=== PATIENT | female | born 1935 | race Caucasian/White ===

== ENCOUNTER → 2017-01-01 | Outpatient (CLI) | payer MEDICARE, BC ==
--- NOTE | 2017-01-02 10:59 | MM ---
Reason for exam: screening (asymptomatic). Last mammogram was performed 3 years and 5 months ago. History: Patient is postmenopausal. Family history of breast cancer in cousin. Physical Findings: A clinical breast exam by your physician is recommended on an annual basis and results should be correlated with mammographic findings. MG 3D Screening Mammo W/Cad Bilateral CC and MLO view(s) were taken. Prior study comparison: August 07, 2013, left diagnostic mammogram w/CAD. February 05, 2013, UP DIGITAL LEFT BREAST MAMMOGRAM w/CAD. The breast tissue is heterogeneously dense. This may lower the sensitivity of mammography. There are calcifications within a mole left breast. There is chronic nodularity bilaterally. There is no dominant lesion. No significant changes when compared with prior studies. ASSESSMENT: Benign, BI-RAD 2 RECOMMENDATION: Routine screening mammogram of both breasts in 1 year.
== END | disposition home or self-care (01) ==
LOC: RADMAMWWP 10:55
PROVIDERS: ATTEND Internal Medicine
DX: Z12.31 Encounter for screening mammogram for malignant neoplasm of breast (principal)
CPT/HCPCS: 77063; G0202

== ENCOUNTER → 2017-10-11 | Outpatient (CLI) | payer MEDICARE, BC ==
--- NOTE | 2017-10-11 15:20 | XR ---
EXAM TYPE: LUMBAR SPINE X RAY SERIES COMPARISON: NONE HISTORY: Chronic lower back pain TECHNIQUE: 4 views are submitted. FINDINGS: Alignment is anatomic. The pedicles are intact. The transverse processes are intact. There is no s pondylolysis or spondylolisthesis. Hypertrophic and degenerative change of the spine. Severe multile gloria degenerative disc disease with multilevel facet arthropathy. Vascular calcifications noted IMPRESSION: 1. Severe multilevel degenerative disc disease and facet arthropathy.
== END | disposition home or self-care (01) ==
LOC: RADXRYALE 14:55
PROVIDERS: ATTEND Internal Medicine
DX: M51.36 Other intervertebral disc degeneration, lumbar region (principal); M46.96 Unspecified inflammatory spondylopathy, lumbar region
CPT/HCPCS: 72110

== ENCOUNTER → 2020-05-27 | Outpatient (CLI) | payer MEDICARE, BC ==
--- NOTE | 2020-05-27 14:46 | US ---
EXAMINATION TYPE: US kidneys/renal and bladder DATE OF EXAM: 05/27/2020 COMPARISON: NONE CLINICAL HISTORY: R31.0 HEMATURIA. Patient states dysuria EXAM MEASUREMENTS: Right Kidney: 10.6 x 4.7 x 4.2 cm Left Kidney: 10.3 x 5.1 x 4.9 cm Right Kidney: Decreased renal cortex. No hydronephrosis or masses seen Left Kidney: Decreased renal cortex. No hydronephrosis or masses seen. Upper pole cyst = 5.7 x 5.4 x 5.1 cm Bladder: Bilateral Jets seen: Yes There is no evidence for hydronephrosis at this point in time. No nephrolithiasis is seen. No solid masses are identified. The urinary bladder is anechoic. Bilateral ureteral jets are seen. Incidental finding of gallstones. IMPRESSION: 1. Renal parenchymal thinning. 2. Simple cyst upper pole left kidney.
== END | disposition home or self-care (01) ==
LOC: RADUSWWP 14:11
PROVIDERS: ATTEND Urology
DX: N28.1 Cyst of kidney, acquired (principal); N28.89 Other specified disorders of kidney and ureter; Z88.1 Allergy status to other antibiotic agents
CPT/HCPCS: 76770

== ENCOUNTER 2020-06-20 12:04 | Day surgery (SDC) | payer MEDICARE, BC ==
[2020-06-08 10:47] VITALS: BMI 29.7
--- NOTE | 2020-06-19 13:12 | P.GSHP ---
History of Present Illness H&P Date: 06/19/20 85 yo [place] who came to me with hematuria and recurrent uti. I did cystoscopy to assess the status of the bladder as there were no positive urine culture reports. The cysto showed chronic inflammation but the cytology was consistent with urothelial ca. I suspect she has cis of the bladder and she comes for bladder biopsies with retrograde pyeograms - Constitutional Constitutional: Denies chills, Denies fever - EENT Eyes: denies blurred vision, denies pain Ears, nose, mouth and throat: Denies headache, Denies sore throat - Cardiovascular Cardiovascular: Denies chest pain, Denies shortness of breath - Respiratory Respiratory: Denies cough, Denies 7 - Gastrointestinal Gastrointestinal: Denies abdominal pain, Denies diarrhea, Denies nausea, Denies vomiting - Genitourinary (Female) Genitourinary: Denies dysuria, Denies hematuria - Genitourinary (Male) Genitourinary: Denies dysuria, Denies hematuria - Musculoskeletal Musculoskeletal: Denies myalgias - Integumentary Integumentary: Denies pruritus, Denies rash - Neurological Neurological: Denies numbness, Denies weakness - Psychiatric Psychiatric: Denies anxiety, Denies depression - Endocrine Endocrine: Denies fatigue, Denies weight change Past Medical History Past Medical History: Atrial Fibrillation, Cancer, Diabetes Mellitus, Hypertension, Osteoarthritis (OA), Skin Disorder, Thyroid Disorder Additional Past Medical History / Comment(s): hx of blood in urine, hx of menierres, skin ca, hx of skin disorder, no current problems History of Any Multi-Drug Resistant Organisms: None Reported Past Surgical History: Heart Catheterization With Stent, Hysterectomy, Joint Replacement, Orthopedic Surgery Additional Past Surgical History / Comment(s): soledad knee replacement, soldead cataracts, soledad carpal tunnel Past Anesthesia/Blood Transfusion Reactions: Previous Problems w/ Anesthesia Additional Past Anesthesia/Blood Transfusion Reaction / Comment(s): longer time to wake up, hx of blood transfusion no reactions Date of Last Stent Placement:: 2011 Smoking Status: Former smoker Medications and Allergies Home Medications Medication Instructions Recorded Confirmed Type Atorvastatin [Lipitor] 10 mg PO MOWEFR 06/08/20 06/08/20 History Cranberry 1 tab PO DAILY 06/08/20 History Digoxin 250 mcg PO HS 06/08/20 06/08/20 History Furosemide [Lasix] 20 mg PO DAILY PRN 06/08/20 06/08/20 History Ginkgo Biloba 120 mg PO DAILY 06/08/20 History Levothyroxine Sodium 0.5 tab PO BROWN 06/08/20 06/08/20 History Levothyroxine Sodium [Synthroid] 112 mcg PO MOTUWETHFRSA 06/08/20 06/08/20 History Linagliptin [Tradjenta] 5 mg PO DAILY 06/08/20 06/08/20 History Lisinopril [Prinivil] 10 mg PO BID 06/08/20 06/08/20 History Magnesium 1 tab PO DAILY 06/08/20 History Metoprolol Tartrate 25 mg PO HS 06/08/20 06/08/20 History Metoprolol Tartrate 50 mg PO QAM 06/08/20 06/08/20 History Pioglitazone [Actos] 45 mg PO QAM 06/08/20 06/08/20 History Rivaroxaban [Xarelto] 10 mg PO DAILY 06/08/20 06/08/20 History traMADol HCL [Ultram] 50 mg PO Q6HR PRN 06/08/20 06/08/20 History Allergies Allergy/AdvReac Type Severity Reaction Status Date / Time tetracycline Allergy throat Verified 06/08/20 10:42 Swelling Surgical - Exam - General well developed, well nourished - Eyes PERRL - ENT no hearing loss - Neck trachea midline - Respiratory normal expansion, normal respiratory effort - Cardiovascular Rhythm: irregularly irregular - Abdomen Abdomen: soft, non tender - Genitourinary normal external genitalia, normal perineum - Integumentary no rash, no growths - Neurologic normal coordination, normal sensation - Musculoskeletal normal posture - Psychiatric oriented to time, oriented to person, oriented to place, speech is normal, memory intact Results - Imaging US - kidney/bladder: report reviewed, image reviewed Assessment and Plan Assessment: Impression: LUTS with hematuria , negative cultures and positive cytology for urothelial ca. Plan: cysto with bilateral retrograde pyelograms and bladder biopsies.
[~2020-06-20 12:04] MED LIST: HYDROmorphone 0.5 MG/0.5 ML SYRINGE IVP PRN; LACTATED RINGERS 1,000 ML IV SCH; LIDOCAINE 1% (10MG/ML) FOR IV START INTRADERMA PRN; ONDANSETRON 4 MG/2 ML VIAL IVP ONE
[2020-06-20 13:09] LABS: Glucose,Whole Blood 195 mg/dL (75-99)
[2020-06-20] MEDS ORDERED: ONDANSETRON 4 MG/2 ML VIAL ONE (13:13)
[2020-06-20] MEDS ORDERED: DEXAMETHASONE SOD PHOSPHATE 4 MG/ML 1 ML VIAL IVP ONE (13:19)
[2020-06-20 13:34] LABS: Basophils % (A) 0 %; Eosinophils # (A) 0.2 k/uL (0-0.7); Eosinophils % (A) 3 %; HGB 11.7 gm/dL (11.4-16.0); Lymphocytes # (A) 2.3 k/uL (1.0-4.8); Lymphocytes % (A) 27 %; MCH 28.2 pg (25.0-35.0); MCHC 33.6 g/dL (31.0-37.0); MCV 83.8 fL (80.0-100.0); Mean Platelet Volume 6.9; Monocytes # (A) 0.5 k/uL (0-1.0); Monocytes % (A) 6 %; Neutrophils # (A) 5.3 k/uL (1.3-7.7); Neutrophils % (A) 62 %; Platelet Count 278 k/uL (150-450); RBC 4.17 m/uL (3.80-5.40); RDW 13.3 % (11.5-15.5); WBC 8.6 k/uL (3.8-10.6)
[2020-06-20 13:43] LABS: Appearance,Urine Cloudy (Clear); Bacteria,Urine Occasional /hpf; Bilirubin,Urine Negative (Negative); Blood,Urine Negative (Negative); Color,Urine Light Yellow; Glucose,Urine (UA) Negative (Negative); Ketones,Urine Negative (Negative); Leukocyte Esterase,Urine Small (Negative); Mucus,Urine Rare /hpf; Nitrite,Urine Negative (Negative); PH, Urine 5.5 (5.0-8.0); Protein,Urine Negative (Negative); RBC,Urine 1 /hpf (0-5); Squamous Epithelial Cell,Urine 8 /hpf (0-4); Urobilinogen,Urine <2.0 mg/dL (<2.0); WBC,Urine 5 /hpf (0-5)
[2020-06-20 13:45] LABS: Albumin 4.1 g/dL (3.5-5.0); Calcium 10.8 mg/dL (8.4-10.2); Potassium 4.7 mmol/L (3.5-5.1); Total Bilirubin 0.6 mg/dL (0.2-1.3); Total Protein 7.1 g/dL (6.3-8.2)
[2020-06-20] MEDS ORDERED: LIDOCAINE 1% INJ 10MG/ML (20 ML MDV) ONE (14:27)
[2020-06-20] MEDS ORDERED: fentaNYL (PF) 50 MCG/ML 2 ML AMP ONE (14:27)
[2020-06-20] MEDS ORDERED: PROPOFOL 10 MG/ML 20 ML VIAL IV ONE (14:27)
[2020-06-20] MEDS ORDERED: IOPAMIDOL-370 50ML BTL MISCELLANE ONE (14:53)
[2020-06-20 15:14] VITALS: TEMP 97.6
[2020-06-20] MEDS ORDERED: HYDROmorphone 0.5 MG/0.5 ML SYRINGE IVP ONE (15:15)
--- NOTE | 2020-06-20 15:15 | P.OP ---
Date of Procedure: 06/20/20 Preoperative Diagnosis: Hematuria, bladder pain rule out carcinoma in situ of the bladder Postoperative Diagnosis: Same Procedure(s) Performed: Cystoscopy, bilateral retrograde pyelograms, bladder biopsies with fulguration Anesthesia: KASHMIR Surgeon: Niranjan Rudolph Estimated Blood Loss (ml): 25 Pathology: other (Bladder biopsies) Condition: stable Disposition: PACU Indications for Procedure: The patient is 85. She has hematuria, symptoms of recurring urinary infection, and erythematous bladder endoscopically and positive urine cytology for urothelial cancer. She comes for bladder biopsies and retrograde pyelogram Description of Procedure: The patient is brought to the operating suite. She's given general endotracheal anesthesia. She's placed lithotomy position with sterile prep and drape. She has a grade 3 rectocele and a grade 2 cystocele. Cystoscopy identifies a trabeculated bladder. There is patchy erythema. Both ureteral orifices are normal. Within a cone-tipped catheter bilateral retrograde pyelograms were performed. The ureters of normal course caliber without filling defect extrinsic compression or calyceal deformity. A cup biopsy forceps several biopsies of the bladder mucosa obtained. With the Bugbee electrode the areas were fulgurated. The bladder strain the patient's awake and returned recovery in good condition. Specimens are sent to pathology Impression positive urine cytology, hematuria and bladder erythema rule out carcinoma in situ the bladder Recommendations: The patient will be discharged home upon recovery and found the office next week.
--- NOTE | 2020-06-20 15:37 | FL ---
Fluoroscopy HISTORY: Gross hematuria 52 seconds fluoroscopy time supplied to the referring clinician. 5 intraoperative C-arm images docum ent the procedure. See dictated report from urology.
[2020-06-20 15:50] VITALS: RESP 18
[2020-06-20 16:02] VITALS: BP 124/60; PULSE 71
[2020-06-20 16:16] LABS: Glucose,Whole Blood 195 mg/dL (75-99)
== END 2020-06-20 16:46 | disposition home or self-care (01) ==
LOC: OR 12:04
PROVIDERS: ATTEND Urology
DX: D09.0 Carcinoma in situ of bladder (principal); I48.91 Unspecified atrial fibrillation; E11.9 Type 2 diabetes mellitus without complications; I25.10 Atherosclerotic heart disease of native coronary artery without angina pectoris; K21.9 Gastro-esophageal reflux disease without esophagitis; I10 Essential (primary) hypertension; E07.9 Disorder of thyroid, unspecified; M19.90 Unspecified osteoarthritis, unspecified site; Z85.828 Personal history of other malignant neoplasm of skin; Z95.5 Presence of coronary angioplasty implant and graft; Z90.710 Acquired absence of both cervix and uterus; Z96.653 Presence of artificial knee joint, bilateral; Z98.42 Cataract extraction status, left eye; Z98.41 Cataract extraction status, right eye; Z98.890 Other specified postprocedural states; Z87.891 Personal history of nicotine dependence; Z79.84 Long term (current) use of oral hypoglycemic drugs; Z79.890 Hormone replacement therapy; Z79.899 Other long term (current) drug therapy; Z79.01 Long term (current) use of anticoagulants; Z79.891 Long term (current) use of opiate analgesic; Z88.1 Allergy status to other antibiotic agents
CPT/HCPCS: 88305; 80053; 85025; 81001; 74420; 52204; C1758; J1100; J2405; J0690; J2001; J3010; J2704; J1170; Q9967

== ENCOUNTER → 2022-11-19 | Outpatient (CLI) | payer MEDICARE, BC ==
[2022-11-19 15:40] LABS: HCT 26.3 % (37.2-46.3); HGB 7.9 d/dL (12.0-15.0); MCH 27.1 pg (27.0-32.0); MCV 90.1 FL (80.0-97.0); Mean Platelet Volume 9.4 FL (9.5-12.2); NRBC Per 100 WBC 0 X 10*3/uL (0.00-0.01); Platelet Count 325 X 10*3/uL (140-440); RBC 2.92 X 10*6/uL (4.10-5.20); RDW 14.7 % (11.5-14.5); WBC 7.33 X 10*3/uL (4.50-10.00)
[2022-11-19 15:44] LABS: ALT 12 U/L (8-44); AST 18 U/L (13-35); Albumin 4.1 d/dL (3.8-4.9); Albumin/Globulin Ratio 1.58 Ratio (1.60-3.17); Alkaline Phosphatase 47 U/L (41-126); Blood Urea Nitrogen 52.6 mg/dL (9.0-27.0); Calcium 10.6 mg/dL (8.7-10.3); Carbon Dioxide 20.4 mmol/L (21.6-31.8); Chloride 105 mmol/L (96-109); Globulin 2.6 d/dL (1.6-3.3); Glucose 135 mg/dL (70-110); Phosphorus 3.7 mg/dL (2.4-5.1); Potassium 5.3 mmol/L (3.5-5.5); Sodium 137 mmol/L (135-145); Total Bilirubin <0.2 mg/dL (0.3-1.2); Total Protein 6.7 d/dL (6.2-8.2)
[2022-11-19 17:00] LABS: Appearance,Urine Turbid (Clear); Bacteria,Urine 2+ (None Seen); Bilirubin,Urine Negative (Negative); Blood,Urine Large (Negative); Color,Urine Yellow (Yellow); Ketones,Urine Negative (Negative); Nitrite,Urine Negative (Negative); Specific Gravity,Urine 1.013 (1.001-1.030); Urobilinogen,Urine 0.2
[2022-11-20 08:18] LABS: Creatinine 24 Hour,Urine 0.68 g/24hr (0.80-1.80)
== END | disposition home or self-care (01) ==
LOC: LABWHC1 12:03
PROVIDERS: ATTEND Internal Medicine
DX: N18.32 Chronic kidney disease, stage 3b (principal)
CPT/HCPCS: 36415; 80053; 81001; 81050; 82570; 84100; 85027

== ENCOUNTER → 2022-12-07 | Outpatient (CLI) | payer MEDICARE, BC ==
--- NOTE | 2022-12-07 14:25 | US ---
EXAMINATION TYPE: US kidneys/renal and bladder DATE OF EXAM: 12/07/2022 COMPARISON: 05/27/20 CLINICAL INDICATION: Female, 87 years old with history of N18.32 CHRONIC KIDNEY DISEASE, STAGE 3B; CK D stage 3, difficulty emptying bladder Hx of bladder cancer 2-3 years ago, patient is in remission af ter "wash" treatments EXAM MEASUREMENTS: Right Kidney: 11.4x4.5x6.2 cm Left Kidney: 10.2x4.8x5.1cm Right Kidney: hydro Left Kidney: hydro, large superior pole cyst redemonstrated: 5.6x5.3x5.7cm Bladder: vascular irregular heterogenous hypoechoic area noted at posterior bladder. thickened wall v s. return of bladder cancer Bilateral Jets seen: left jet visualized No nephrolithiasis is seen. The urinary bladder is anechoic. IMPRESSION: 1. Severe right-sided hydronephrosis. 2. Severe left-sided hydronephrosis. 3. Urinary bladder irregularity. Consider direct visualization.
[2022-12-07 15:01] LABS: Amorphous Sediment,Urine Rare /hpf; Appearance,Urine Turbid (Clear); Bacteria,Urine Many /hpf; Bilirubin,Urine Negative (Negative); Blood,Urine Large (Negative); Color,Urine Yellow; Glucose,Urine (UA) 4+ (Negative); Ketones,Urine Negative (Negative); Leukocyte Esterase,Urine Large (Negative); Mucus,Urine Many /hpf; Nitrite,Urine Negative (Negative); Protein,Urine 1+ (Negative); RBC,Urine 75 /hpf (0-5); Specific Gravity,Urine 1.013 (1.001-1.035); Squamous Epithelial Cell,Urine 3 /hpf (0-4); Urobilinogen,Urine <2.0 mg/dL (<2.0); WBC,Urine >182 /hpf (0-5)
[2022-12-07 20:01] LABS: % Iron Saturation 8.49 (12.00-45.00); BUN/Creat Ratio 20.09 Ratio (12.00-20.00); Blood Urea Nitrogen 46.2 mg/dL (9.0-27.0); Calcium 10.4 mg/dL (8.7-10.3); Carbon Dioxide 21.3 mmol/L (21.6-31.8); Chloride 103 mmol/L (96-109); Ferritin 31.6 ng/mL (10.0-291.0); Glucose 101 mg/dL (70-110); Iron 31 UG/DL (50-170); Phosphorus 3.7 mg/dL (2.4-5.1); Potassium 5.2 mmol/L (3.5-5.5); Sodium 135 mmol/L (135-145); Total Iron Binding Capacity 365 UG/DL (228-460)
[2022-12-07 23:18] LABS: Urine Creatinine 72.3 mg/dL (28.0-217.0)
[2022-12-08 02:07] LABS: Basophils # (A) 0.03 X 10*3/uL (0.00-0.10); Basophils % (A) 0.4 %; Eosinophils # (A) 0.21 X 10*3/uL (0.04-0.35); HCT 26.7 % (37.2-46.3); HGB 8.1 d/dL (12.0-15.0); Lymphocytes # (A) 2.91 X 10*3/uL (0.90-5.00); Lymphocytes % (A) 41.5 %; MCH 27.6 pg (27.0-32.0); MCHC 30.3 d/dL (32.0-37.0); MCV 90.8 FL (80.0-97.0); Mean Platelet Volume 9.2 FL (9.5-12.2); Monocytes # (A) 0.73 X 10*3/uL (0.20-1.00); Monocytes % (A) 10.4 %; NRBC Per 100 WBC 0 X 10*3/uL (0.00-0.01); Neutrophils # (A) 3.12 X 10*3/uL (1.80-7.70); Neutrophils % (A) 44.4 %; Platelet Count 326 X 10*3/uL (140-440); RBC 2.94 X 10*6/uL (4.10-5.20); RDW 14.7 % (11.5-14.5); WBC 7.02 X 10*3/uL (4.50-10.00)
== END | disposition home or self-care (01) ==
LOC: RADUSWWP 12:51
PROVIDERS: ATTEND Internal Medicine
DX: N18.32 Chronic kidney disease, stage 3b (principal); N17.9 Acute kidney failure, unspecified; D64.9 Anemia, unspecified; N13.30 Unspecified hydronephrosis
CPT/HCPCS: 76770; 80069; 81001; 82043; 82570; 82728; 83540; 83550; 85025